=== PATIENT | female | born 1955 | race Caucasian/White ===

== ENCOUNTER 2016-11-17 13:44 | Emergency (ER) | payer MEDICAID, OTHER ==
[~2016-11-17] VITALS: Ht 160 cm; Wt 71.7 kg
[~2016-11-17 13:44] MED LIST: AUGMENTIN 875-1 EAC1 ORAL; NKM; POLYTRIM OP SOL10 ML OPHTHALM
[2016-11-17 14:06] VITALS: BP 134/84
[2016-11-17] MEDS ORDERED: Bicillin LA 2,400,000 units IM ONE (14:15)
--- NOTE | 2016-11-17 14:17 | Emergency Room Report ---
History of Present Illness General Chief Complaint: General Complaint Source: Patient Present Illness HPI The patient is a 61-year-old female presenting with tooth pain which began 2 days prior. The patient states that she has had dental infections in the past and this feels similar. Pain is described as an 8/10 dull/throbbing ache to the right upper jaw. Pain worse with chewing. The patient denies any radiation of pain. Patient does admit R facial swelling which she noticed today. The patient also admits to subjective fever this morning. The patient has an appointment to see dentist in 3 days. The patient denies other symptoms including headache, dizziness, blurred vision , ear pain, sore throat, cough, chest pain, shortness of breath Allergies: Coded Allergies: CEPHALEXIN (Verified Allergy, Unknown, 04/18/16) SHELLFISH DERIVED (Unverified Allergy, Unknown, 11/17/16) Uncoded Allergies: SHELLFISH (Allergy, Unknown, 11/17/16) Patient History Past Medical History: see triage record Pertinent Family History: none Reviewed Nursing Documentation: PMH: Agreed, PSxH: Agreed Nursing Documentation-PMH Past Medical History: No History, Except For Review of Systems All Other Systems: negative except mentioned in HPI Physical Exam Vital Signs Date Time Temp Pulse Resp B/P Pulse Ox O2 Delivery O2 Flow Rate FiO2 11/17/16 13:51 98.1 71 16 134/84 97 Room Air Sp02 EP Interpretation: reviewed, normal General Appearance: no apparent distress, alert, GCS 15, non-toxic Head: normocephalic, atraumatic Eyes: bilateral eye PERRL, bilateral eye normal inspection ENT: hearing grossly normal, no angioedema, normal voice, TMs + canals normal, uvula midline, moist mucus membranes, other - There are many dental caries. R upper mollar has surrounding erythema and edema. TTP. Neck: full range of motion, supple/symm/no masses Respiratory: chest non-tender, lungs clear, normal breath sounds, no wheezing, speaking full sentences Cardiovascular #1: regular rate, rhythm, no edema Gastrointestinal: normal bowel sounds, non tender, soft, non-distended, no guarding, no rebound Musculoskeletal: back normal, gait/station normal, normal range of motion, non- tender Neurologic: alert, oriented x3, responsive, motor strength/tone normal, sensory intact, speech normal Psychiatric: judgement/insight normal, memory normal, mood/affect normal, no suicidal/homicidal ideation Skin: normal color, no rash, warm/dry, well hydrated Lymphatic: no adenopathy Medical Decision Making PA Attestation Dr. Escudero is my supervising physician. Patient management was discussed with my supervising physician Diagnostic Impression: Primary Impression: Dental infection ER Course The patient is a 61-year-old female presenting with tooth pain Diagnoses considered but not limited to: Dental elvis, dental abscess, toothache , gingivitis PE: vitals WNL. NAD HEENT: There are many dental caries. R upper molar has surrounding erythema and edema. TTP. There is edema to the right face adjacent to upper teeth. The patient is given a shot of penicillin and will be discharged home with a prescription for Augmentin and pain medication. The patient states that she has an appointment with the dentist on the following Sunday. ER precautions are given Last Vital Signs Date Time Temp Pulse Resp B/P Pulse Ox O2 Delivery O2 Flow Rate FiO2 11/17/16 14:06 98.1 76 16 134/84 97 Room Air Status: improved Disposition: HOME, SELF-CARE Condition: Improved Scripts Tramadol Hcl* (ULTRAM*) 50 Mg Tablet 50 MG ORAL Q6H Y for For Pain, #15 TAB 0 Refills Prov: NAVNEET SHARMA 11/17/16 Amoxicillin/Potassium Clav 500-125 Tablet* (AUGMENTIN 500-125 TABLET*) 1 Each Tablet 1 TAB ORAL THREE TIMES A DAY, #21 TAB Prov: NAVNEET SHARMA 11/17/16 NAVNEET SHARMA Nov 17, 2016 14:17
[2016-11-17] MEDS ORDERED: AUGMENTIN 500-1 EACH ORAL (14:28)
[2016-11-17] MEDS ORDERED: TRAMADOL HCL50 MG ORAL (14:28)
[2016-11-17 15:02] VITALS: BP 134/84
[2016-12-01] MEDS ORDERED: CLARITHROMYCIN500 MG PO (15:01)
[2016-12-01] MEDS ORDERED: FLUTICASONE PRO16 G1 NASAL (15:01)
== END 2016-11-17 15:04 | disposition home or self-care (01) ==
LOC: EMR 14:10
DX: K04.7 Periapical abscess without sinus (principal); Z91.013 Allergy to seafood
CPT/HCPCS: 96372; 99283

== ENCOUNTER 2016-11-29 16:20 | Emergency (ER) | payer OTHER ==
[~2016-11-29] VITALS: Ht 160 cm; Wt 70.3 kg
[~2016-11-29 16:20] MED LIST changes: +AUGMENTIN 500-1 EACH ORAL; +TRAMADOL HCL50 MG ORAL
[2016-11-29 16:46] VITALS: BP 125/68
[2016-11-29] MEDS ORDERED: Norco 5mg/325mg tab ORAL ONE (17:45)
[2016-11-29] MEDS ORDERED: AUGMENTIN 500-1 EACH ORAL (19:23)
[2016-11-29] MEDS ORDERED: PREDNISONE20 MG ORAL (19:23)
[2016-11-29 19:27] VITALS: BP 119/63
--- NOTE | 2016-11-29 22:30 | Emergency Room Report ---
History of Present Illness General Chief Complaint: Skin Rash/Abscess Source: Patient (NAVNEET SHARMA) Present Illness HPI The patient is a 61-year-old female presenting for left facial pain. The patient was seen in this emergency department 2 weeks prior for dental abscess. Patient was treated with a shot of penicillin and a prescription for Augmentin. The patient states that she did followup with dentist who told her to return when antibiotics are finished. The patient did finish antibiotics but did not followup with dentist. Patient states that the right-sided facial pain and abscess have resolved but is now experiencing left-sided facial pain. This pain is described as a 7/10 dull ache of the left lower face. Pain worse with touch and chewing. (NAVNEET SHARMA) Allergies: Coded Allergies: CEPHALEXIN (Verified Allergy, Unknown, 04/18/16) SHELLFISH DERIVED (Unverified Allergy, Unknown, 11/17/16) Uncoded Allergies: SHELLFISH (Allergy, Unknown, 11/17/16) Patient History Past Medical History: see triage record Pertinent Family History: none Now: No Reviewed Nursing Documentation: PMH: Agreed, PSxH: Agreed (NAVNEET SHARMA) Nursing Documentation-PMH Past Medical History: No History, Except For (NAVNEET SHARMA) Review of Systems All Other Systems: negative except mentioned in HPI (NAVNEET SHARMA) Physical Exam Vital Signs Date Time Temp Pulse Resp B/P Pulse Ox O2 Delivery O2 Flow Rate FiO2 11/29/16 16:37 98.1 80 16 125/68 100 Room Air (NAVNEET SHARMAAAllison) Medical Decision Making PA Attestation Dr. Tobar is my supervising physician. Patient management was discussed with my supervising physician (NAVNEET SHARMA) Diagnostic Impression: Primary Impression: Lopez's palsy Additional Impression: Sinusitis ER Course The pt spoke with Dr. Tracy on 11/30 and 12/01. The antibiotic will be changed to clindamycin and the patient will be placed on flonase. Patient advised to return for repeat of CT of face and blood work but has chosen to wait until 12/06/2016 to return if she feels fit. ER precautions given and pt understands the seriousness of this. (NAVNEET SHARMA) ER Course Patient called today stating that she is not feeling better. Patient was seen 2 days ago and discharged on antibiotics for presumed sinusitis and steroids for Lopez's palsy. Patient states she is having persistent pain on the left side of face. I discussed case with ENT; since patient was already on Augmentin may want to consider a different antibiotic. Also consider adding intranasal steroids. If symptoms do not improve patient can come back for further evaluation including repeat CT and labs. Discussed options with the patient; at this time patient would like to try to antibiotics and intranasal steroids. Will consider returning to ED next week If symptoms do not improve. I called in prescription for clindamycin and Flonase (FOREST TRACY M.D.) Last Vital Signs Date Time Temp Pulse Resp B/P Pulse Ox O2 Delivery O2 Flow Rate FiO2 11/29/16 19:27 98.1 16 119/63 100 Room Air 11/29/16 16:37 80 Status: improved (NAVNEET SHARMA) Disposition: HOME, SELF-CARE Condition: Improved Scripts Clarithromycin* (CLARITHROMYCIN*) 500 Mg Tablet 500 MG PO Q12HR for 14 Days, TAB Prov: FOREST TRACY M.D. 12/01/16 Fluticasone Propionate* (FLUTICASONE PROPIONATE*) 16 Gm Ware.susp 1 SPRAY NASAL TWICE A DAY, #16 GM Prov: FOREST TRACY M.D. 12/01/16 Prednisone* (PREDNISONE*) 20 Mg Tablet 40 MG ORAL DAILY for 5 Days, TAB Prov: GERALDINEANNAVNEET P.A. 11/29/16 Prednisone* (PREDNISONE*) 20 Mg Tablet 60 MG ORAL DAILY for 5 Days, TAB Prov: TERGREGORIOANNAVNEET P.A. 11/29/16 Amoxicillin/Potassium Clav 500-125 Tablet* (AUGMENTIN 500-125 TABLET*) 1 Each Tablet 1 TAB ORAL THREE TIMES A DAY, #21 TAB Prov: DANIEL SHARMAY P.A. 11/29/16 Patient Instructions: Dental Pain, Olpez Palsy Additional Instructions: I discussed my findings with the patient. All questions and concerns have been answered. Treatment and medication compliance have been addressed. I advised the patient that they need to follow up with PMD in 3-5 days. Return to ED if symptoms worsen, new symptoms arise, or if needed for any reason. Patient verbalized understanding of discharge instructions. The patient is advised that she needs to followup with both dentist and primary doctor soon as possible NAVNEET SHAMRA Nov 29, 2016 22:30 FOREST TRACY M.D. Dec 01, 2016 16:02
--- NOTE | 2016-11-30 08:56 | Diagnostic Imaging Report ---
Indications: PAIN no history of trauma Technique: Spiral images obtained through the facial bones. No IV contrast utilized. Multiplanar reconstructions were generated.Total dose length product 564 mGycm. CTDIvol(s) 28mGy Comparison: None Findings: There is a fracture deformity of the anterior inferior bony nasal septum. The nasal bone itself appears intact. No other evidence of fracture. Large dental caries are seen involving the right maxillary first and second molars. No underlying apical root abscess demonstrated.. There is opacification of left sphenoid sinus. No significant subcutaneous soft tissue abnormality is demonstrated. The retropharyngeal soft tissues are unremarkable. The visualized cranial structures are unremarkable. The orbits are unremarkable. Impression: Dental disease, as described Sphenoid sinus disease Fracture deformity of the anterior inferior bony nasal septum there is presumably old in the absence of history of acute bony trauma This agrees with the preliminary interpretation provided overnight by Dr. Arora The CT scanner at [facility] is accredited by the [employer] and the scans are performed using protocols designed to limit radiation exposure to as low as reasonably achievable to attain images of sufficient resolution adequate for diagnostic evaluation.
--- NOTE | 2016-11-30 08:58 | Diagnostic Imaging Report ---
Indication: PAIN, Lopez's palsy Technique: Continuous helical CT scanning of the head was performed without intravenous contrast material. Axial and coronal 5 mm sections were generated. Radiation dose was minimized using automated exposure control Dose: Total Dose Length Product - DLP [address] Dose Index - CTDIvol(s) 70.38 mGy. Comparison: None Findings: The ventricular system is normal in size and configuration. There is no shift of midline structures. No abnormal extra-axial fluid collections are noted. There is no evidence of intracerebral bleeding. No other abnormal high or low density areas are noted within the brain. There is opacification of left sphenoid sinus. The included orbits are unremarkable. Impression: Normal CT scan of the head without contrast material. Incidental finding of sinus disease This agrees with the preliminary interpretation provided overnight by Dr. Arora The CT scanner at [facility] is accredited by the [employer] and the scans are performed using protocols designed to limit radiation exposure to as low as reasonably achievable to attain images of sufficient resolution adequate for diagnostic evaluation.
[2016-12-01] MEDS ORDERED: CLARITHROMYCIN500 MG PO (15:01)
[2016-12-01] MEDS ORDERED: FLUTICASONE PRO16 G1 NASAL (15:01)
== END 2016-11-29 19:28 | disposition home or self-care (01) ==
LOC: EMR 16:55
DX: K04.7 Periapical abscess without sinus (principal); G51.0 Bell's palsy; Z91.013 Allergy to seafood; Z88.1 Allergy status to other antibiotic agents
CPT/HCPCS: 70450; 70486; 99284

== ENCOUNTER 2016-12-04 13:58 | Emergency (ER) | payer OTHER ==
[~2016-12-04] VITALS: Ht 160 cm; Wt 70.3 kg
[~2016-12-04 13:58] MED LIST changes: +CLARITHROMYCIN500 MG PO; +FLUTICASONE PRO16 G1 NASAL; +PREDNISONE20 MG ORAL
[2016-12-04 15:22] LABS: BASOPHILS % (AUTO) 0.9 % (0.0-2.0); MEAN CORPUSCULAR HEMOGLOBIN 33.2 PG (27.0-31.0); MEAN CORPUSCULAR HGB CONC 34.1 G/DL (32.0-36.0); MEAN CORPUSCULAR VOLUME 97 FL (80-99); MEAN PLATELET VOLUME 8.3 FL (6.5-10.1); MONOCYTES % (AUTO) 7.5 % (1.0-10.0); NEUTROPHILS % (AUTO) 54.7 % (45.0-75.0); PLATELET COUNT 145 K/UL (150-450); RED BLOOD COUNT 4.07 M/UL (4.20-5.40); RED CELL DISTRIBUTION WIDTH 12.6 % (11.6-14.8); WHITE BLOOD COUNT 9.6 K/UL (4.8-10.8)
[2016-12-04 15:40] LABS: ANION GAP 15 (5-15); CALCIUM 9.2 mg/dL (8.6-10.2); CARBON DIOXIDE 24 mEQ/L (20-30); CHLORIDE 102 mEQ/L (98-107); CREATININE 0.6 mg/dL (0.5-0.9); GLOMERULAR FILTRATION RATE > 60 mL/min (>60); HEMOLYSIS 9; POTASSIUM 3.4 mEQ/L (3.4-4.9); SODIUM 141 mEQ/L (135-145)
[2016-12-04 15:58] VITALS: BP 146/88
--- NOTE | 2016-12-06 03:50 | Emergency Room Report ---
History of Present Illness General Chief Complaint: General Complaint Source: Patient Present Illness HPI Patient presents after being contacted for reevaluation Patient had been here previously with sinus infection, Lopez's palsy Patient presents now with improved Lopez's palsy Denies any headache Patient reports that she was seen at [facility], and has neurology followup Patient has had very pertinent past medical history with septicemia, previous strokes Patient is also aware of her dental caries and is seeing a specialist Given her abnormal CT and Lopez's palsy patient was requested to return for reevaluation Allergies: Coded Allergies: CEPHALEXIN (Verified Allergy, Unknown, 04/18/16) SHELLFISH DERIVED (Unverified Allergy, Unknown, 11/17/16) Uncoded Allergies: SHELLFISH (Allergy, Unknown, 11/17/16) Patient History Past Medical History: see triage record Pertinent Family History: none Reviewed Nursing Documentation: PMH: Agreed, PSxH: Agreed Nursing Documentation-PMH Past Medical History: No History, Except For Review of Systems All Other Systems: negative except mentioned in HPI Physical Exam Vital Signs Date Time Temp Pulse Resp B/P Pulse Ox O2 Delivery O2 Flow Rate FiO2 12/04/16 14:12 97.2 75 14 143/75 100 Room Air Sp02 EP Interpretation: reviewed, normal General Appearance: well appearing, no apparent distress Head: normocephalic, atraumatic Eyes: left eye other - Lopez's palsy left side, bilateral eye EOMI, bilateral eye PERRL ENT: hearing grossly normal, normal pharynx, TMs + canals normal, uvula midline , other - Dental decay Neck: full range of motion, supple, no meningismus, no bony tend Respiratory: lungs clear, normal breath sounds, no rhonchi, no respiratory distress, no retraction, no accessory muscle use Cardiovascular #1: normal peripheral pulses, regular rate, rhythm, no edema, no gallop, no JVD, no murmur Gastrointestinal: normal bowel sounds, non tender, soft, no mass, no organomegaly, non-distended, no guarding, no hernia, no pulsatile mass, no rebound Genitourinary: no CVA tenderness Musculoskeletal: other - Lopez's palsy on the left side Neurologic: oriented x3, responsive, sensory intact, other - Lopez's palsy Psychiatric: mood/affect normal Skin: normal color, no rash, warm/dry, palpation normal Lymphatic: normal inspection, no adenopathy Medical Decision Making Diagnostic Impression: Primary Impression: Lopez's palsy Additional Impression: Dental infection ER Course Patient's CT scan had revealed previously dental disease also evidence of sphenoid sinus opacification At this time given the patient's neurological exam she is awake alert She feels improved from previous Patient has neurology followup Patient has had also as noted previously fairly significant past medical history , and this also does involve shingles, however the patient has no conjunctival erythema I do not feel that CAT scan imaging would provide much further input, patient also agrees with this Patient did have blood work obtained for further evaluation of bacteremia which was negative Patient was provided a copy of her images and will have close outpatient follow Labs Test 12/04/16 14:55 White Blood Count 9.6 K/UL (4.8-10.8) Red Blood Count 4.07 M/UL (4.20-5.40) Hemoglobin 13.5 G/DL (12.0-16.0) Hematocrit 39.5 % (37.0-47.0) Mean Corpuscular Volume 97 FL (80-99) Mean Corpuscular Hemoglobin 33.2 PG (27.0-31.0) Mean Corpuscular Hemoglobin Concent 34.1 G/DL (32.0-36.0) Red Cell Distribution Width 12.6 % (11.6-14.8) Platelet Count 145 K/UL (150-450) Mean Platelet Volume 8.3 FL (6.5-10.1) Neutrophils (%) (Auto) 54.7 % (45.0-75.0) Lymphocytes (%) (Auto) 36.0 % (20.0-45.0) Monocytes (%) (Auto) 7.5 % (1.0-10.0) Eosinophils (%) (Auto) 1.0 % (0.0-3.0) Basophils (%) (Auto) 0.9 % (0.0-2.0) Sodium Level 141 mEQ/L (135-145) Potassium Level 3.4 mEQ/L (3.4-4.9) Chloride Level 102 mEQ/L (98-107) Carbon Dioxide Level 24 mEQ/L (20-30) Anion Gap 15 (5-15) Blood Urea Nitrogen 10 mg/dL (7-23) Creatinine 0.6 mg/dL (0.5-0.9) Estimat Glomerular Filtration Rate > 60 mL/min (>60) Glucose Level 89 mg/dL (74-106) Calcium Level 9.2 mg/dL (8.6-10.2) Last Vital Signs Date Time Temp Pulse Resp B/P Pulse Ox O2 Delivery O2 Flow Rate FiO2 12/04/16 15:58 78 16 146/88 94 Room Air 12/04/16 15:58 97.7 Status: improved Disposition: HOME, SELF-CARE Condition: Improved Referrals: [facility]REFERR[facility],REFERRING (PCP) Patient Instructions: Lopez Palsy, Dental Caries, [id number] Additional Instructions: Patient is provided with the discharge instructions notified to follow up with primary doctor in the next 2-3 days otherwise return to the er with any worsening symptoms. Please note that this report is being documented using [employer] technology. This can lead to erroneous entry secondary to incorrect interpretation by the dictating instrument. LISSET DOSHI D.O. Dec 06, 2016 03:50
== END 2016-12-04 16:06 | disposition home or self-care (01) ==
LOC: EMR 15:55
DX: G51.0 Bell's palsy (principal); K04.7 Periapical abscess without sinus; Z88.1 Allergy status to other antibiotic agents; Z91.013 Allergy to seafood; Z86.73 Personal history of transient ischemic attack (TIA), and cerebral infarction without residual deficits
CPT/HCPCS: 36415; 80048; 85025; 99284

== ENCOUNTER 2016-12-08 12:11 | Emergency (ER) | payer MEDICAID, OTHER ==
[~2016-12-08] VITALS: Ht 162.6 cm; Wt 70.8 kg
[2016-12-08 12:26] VITALS: BP 147/87
[2016-12-08] MEDS ORDERED: Norco 7.5mg/325mg tab ORAL ONE (12:45)
[2016-12-08] MEDS ORDERED: Bicillin LA 2,400,000 units IM ONE (12:45)
[2016-12-08] MEDS ORDERED: NORCO 5-325 TA1 EAC1 ORAL (13:19)
[2016-12-08 13:24] VITALS: BP 136/79
--- NOTE | 2016-12-10 20:15 | Emergency Room Report ---
History of Present Illness General Chief Complaint: Skin Rash/Abscess Source: Patient Present Illness HPI The pt is a 61 yo F presenting for continuing facial pain. The was seen in this ED two weeks prior and initially diagnosed with a R sided dental infection. The pt was treated with augmentin and told to FU with her dentist. The pt states this infection completely resolved but was unable to make an appointment with her dentist. The pt then returned to this ER for L sided dental pain. The pt was diagnosed with L sphenoid sinusitis and Lopez's palsy. The pt was again treated with antibiotics and steroids. The pt is now presenting for continuing L sided facial pain. This pain is described as a 10/10 dull ache and is localized to the L lower teeth. Pain is worse with chewing. Pain radiates to the L cheek. The pt states motrin and tylenol do not help. The pt denies other symptoms including N, V, F, chills, cough, neck pain, neck stiffness, SY, dizziness, blurred vision, SOB, CP Allergies: Coded Allergies: CEPHALEXIN (Verified Allergy, Unknown, 04/18/16) SHELLFISH DERIVED (Unverified Allergy, Unknown, 11/17/16) Uncoded Allergies: SHELLFISH (Allergy, Unknown, 11/17/16) Patient History Past Medical History: see triage record Pertinent Family History: none Reviewed Nursing Documentation: PMH: Agreed, PSxH: Agreed Nursing Documentation-PMH Past Medical History: No History, Except For Review of Systems All Other Systems: negative except mentioned in HPI Physical Exam Vital Signs Date Time Temp Pulse Resp B/P Pulse Ox O2 Delivery O2 Flow Rate FiO2 12/08/16 12:16 97.5 90 16 147/87 95 Room Air Sp02 EP Interpretation: reviewed, normal General Appearance: no apparent distress, alert, GCS 15, non-toxic Head: normocephalic, atraumatic Eyes: bilateral eye EOMI, bilateral eye PERRL ENT: hearing grossly normal, normal pharynx, no angioedema, normal voice Neck: full range of motion, supple/symm/no masses Respiratory: chest non-tender, lungs clear, normal breath sounds, speaking full sentences Cardiovascular #1: regular rate, rhythm, no edema Musculoskeletal: back normal, gait/station normal, normal range of motion, non- tender Neurologic: alert, oriented x3, responsive, sensory intact, normal gait, motor weakness - weakness of L facial nerve Psychiatric: judgement/insight normal, memory normal, mood/affect normal, no suicidal/homicidal ideation Skin: normal color, no rash, warm/dry, well hydrated Lymphatic: no adenopathy Medical Decision Making PA Attestation Dr. Tobar is my supervising physician. Patient management was discussed with my supervising physician Diagnostic Impression: Primary Impression: Lopez's palsy Additional Impression: Dental infection ER Course The pt is a 61 yo F presenting for continuing facial pain. DDx: dental infection/abscess, Lopez palsy, sinusitis, shingles PE: vitals WNL. NAD HEENT: PERRL. Poor dentition. There is TTP over the L lower premolar with surrounding erythema. Neuro: normal gait. There is weakness of the L facial nerve. Pt unable to furrow L brow. L eyelid does not completely close. Uneven smile. The pt is given PCN G IM and pain medication The pt is advised she needs to see dentist DESMOND for evaluation and also ENT. ER precautions given . Last Vital Signs Date Time Temp Pulse Resp B/P Pulse Ox O2 Delivery O2 Flow Rate FiO2 12/08/16 13:24 97.5 81 16 136/79 95 Room Air Status: improved Disposition: HOME, SELF-CARE Condition: Improved Scripts Hydrocodone Bit/Acetaminophen 5-325* (NORCO 5-325 TABLET*) 1 Each Tablet 1 TAB ORAL Q6HR Y for For Pain, #10 TAB Prov: NAVNEET SHARMA 12/08/16 Referrals: NOT CHOSEN IPA/MD,REFERRING Patient Instructions: Dental Pain, Lopez Palsy Additional Instructions: I discussed my findings with the patient. All questions and concerns have been answered. Treatment and medication compliance have been addressed. I advised the patient that they need to follow up with PMD in 3-5 days. Return to ED if symptoms worsen, new symptoms arise, or if needed for any reason. Patient verbalized understanding of discharge instructions. Patient advised she needs to see neurology and dentist as soon as possible NAVNEET SHARMA Dec 10, 2016 20:15
== END 2016-12-08 13:33 | disposition home or self-care (01) ==
LOC: EMR 13:14
DX: G51.0 Bell's palsy (principal); K04.7 Periapical abscess without sinus; Z88.1 Allergy status to other antibiotic agents; Z91.013 Allergy to seafood
CPT/HCPCS: 82962; 96372; 99283

== ENCOUNTER 2017-03-07 14:14 | Emergency (ER) | payer MEDICAID, OTHER ==
[~2017-03-07] VITALS: Ht 160 cm; Wt 71.7 kg
[~2017-03-07 14:14] MED LIST changes: +NORCO 5-325 TA1 EAC1 ORAL
[2017-03-07] MEDS ORDERED: Norco 5mg/325mg tab ORAL ONE (14:45)
[2017-03-07] MEDS ORDERED: Bicillin LA 1.2 Million Units Syr IM ONE (14:45)
[2017-03-07 14:55] VITALS: BP 111/71
[2017-03-07] MEDS ORDERED: ACETAMINOPHEN-1 EAC1 ORAL (15:11)
[2017-03-07 15:19] VITALS: BP 111/71
--- NOTE | 2017-03-07 19:28 | Emergency Room Report ---
History of Present Illness General Chief Complaint: Edema Source: Patient Present Illness HPI The patient is a 61-year-old female presenting with left-sided facial pain and swelling. She was seen in this emergency department for the same complaint, diagnosed with dental infection, given antibiotics and symptoms resolved. She was told to follow up with dentist. The patient states that she saw a dentist who told her that all teeth need to be removed. She states that she is now waiting for insurance. The patient states that she experienced pain and swelling to the left side of her face 2 days prior. Pain worse with chewing and touch. Described as an 8/10 dull ache and does not radiate. She denies any other symptoms including N, V, F, chills, SOB, rash, SY, dizziness, blurred vision Allergies: Coded Allergies: CEPHALEXIN (Verified Allergy, Unknown, 04/18/16) SHELLFISH DERIVED (Unverified Allergy, Unknown, 11/17/16) Uncoded Allergies: SHELLFISH (Allergy, Unknown, 11/17/16) Patient History Past Medical History: see triage record Pertinent Family History: none Now: No Reviewed Nursing Documentation: PMH: Agreed, PSxH: Agreed Review of Systems All Other Systems: negative except mentioned in HPI Physical Exam Vital Signs Date Time Temp Pulse Resp B/P Pulse Ox O2 Delivery O2 Flow Rate FiO2 03/07/17 14:17 97.5 80 17 112/71 96 Room Air Sp02 EP Interpretation: reviewed, normal General Appearance: no apparent distress, alert, GCS 15, non-toxic Head: normocephalic, atraumatic, other - L lower facial edema. TTP over the L upper jaw. No fluctuance. Eyes: bilateral eye EOMI, bilateral eye PERRL, bilateral eye normal inspection ENT: hearing grossly normal, normal pharynx, no angioedema, normal voice, uvula midline Neck: full range of motion, supple/symm/no masses Respiratory: chest non-tender, lungs clear, normal breath sounds, speaking full sentences Cardiovascular #1: regular rate, rhythm, no edema Neurologic: alert, oriented x3, responsive, motor strength/tone normal, sensory intact, speech normal Psychiatric: judgement/insight normal, memory normal, mood/affect normal, no suicidal/homicidal ideation Skin: normal color, no rash, warm/dry, well hydrated Lymphatic: no adenopathy Medical Decision Making PA Attestation Dr. Lockhart is my supervising physician. Patient management was discussed with my supervising physician Diagnostic Impression: Primary Impression: Dental infection ER Course The patient is a 61-year-old female presenting with left-sided facial pain and swelling Differential diagnoses considered but not limited to: Dental infection, dental abscess, Lopez's palsy, allergic reaction, CVA, among others Physical exam: Vitals within normal limits. No apparent distress HEENT: There is left-sided facial swelling primarily over the maxilla. There is diffuse poor dentition. There tenderness to palpation over the left upper premolar. No fluctuance. No discharge or bleeding. No lymphadenopathy CN II-XII grossly intact. Otherwise exam unremarkable Pt is given PCN G and pain medication and will be DC'ed. She needs to FU with dentist DESMOND. ER precautions given Last Vital Signs Date Time Temp Pulse Resp B/P Pulse Ox O2 Delivery O2 Flow Rate FiO2 03/07/17 15:19 97.5 78 17 111/71 97 Room Air Status: improved Disposition: HOME, SELF-CARE Condition: Improved Scripts Acetaminophen With Codeine (T#3) (TYLENOL #3 TAB*) Y Tab 1 TAB ORAL Q6HR Y for For Pain, #8 TAB Prov: NAVNEET SHARMA 03/07/17 Referrals: [facility] (PCP) Patient Instructions: Dental Pain Additional Instructions: I discussed my findings with the patient. All questions and concerns have been answered. Treatment and medication compliance have been addressed. I advised the patient that they need to follow up with PMD in 3-5 days. Return to ED if symptoms worsen, new symptoms arise, or if needed for any reason. Patient verbalized understanding of discharge instructions. The patient will follow up with dentist as soon as possible for further care NAVNEET SHARMA March 07, 2017 19:28
== END 2017-03-07 15:21 | disposition home or self-care (01) ==
LOC: EMR 14:29
DX: K08.89 Other specified disorders of teeth and supporting structures (principal); R51 Headache; Z88.1 Allergy status to other antibiotic agents; Z91.013 Allergy to seafood
CPT/HCPCS: 96372; 99283; J0570; J0561

== ENCOUNTER 2017-05-28 14:53 | Emergency (ER) | payer MEDICAID, OTHER ==
[~2017-05-28] VITALS: Ht 162.6 cm; Wt 71.7 kg
[~2017-05-28 14:53] MED LIST changes: +ACETAMINOPHEN-1 EAC1 ORAL
[2017-05-28 15:00] VITALS: BP 112/72
--- NOTE | 2017-05-28 15:26 | Emergency Room Report ---
History of Present Illness General Chief Complaint: Toothache Source: Patient Present Illness HPI 63-year-old female presents to the emergency department complaining of swelling and tenderness to the right lower jaw since yesterday. Patient states that she was recently seen by Dentist who recommended "root and gum scaling " for recurrent gingival infections. pt. denies fevers or chills. pt. reports last dental infection was approximately 1 month ago. pt. states at home she has been doing warm compresses with salt water gargles which provided some relief to her facial/jaw swelling. pt. reports continued tenderness, and 6/10 in severity dull ache to the right lower jaw. denies other associated symptoms. Denies CP, Palpitations, LOC, AMS, dizziness, Changes in Vision, Sensation, paresthesias, or a sudden severe headache. Allergies: Coded Allergies: CEPHALEXIN (Verified Allergy, Unknown, 04/18/16) SHELLFISH DERIVED (Unverified Allergy, Unknown, 11/17/16) Uncoded Allergies: SHELLFISH (Allergy, Unknown, 11/17/16) Patient History Past Medical History: see triage record Past Surgical History: none Pertinent Family History: none Last Menstrual Period: na Immunizations: UTD Reviewed Nursing Documentation: PMH: Agreed, PSxH: Agreed Nursing Documentation-PMH Past Medical History: No History, Except For Review of Systems All Other Systems: negative except mentioned in HPI Physical Exam Vital Signs Date Time Temp Pulse Resp B/P Pulse Ox O2 Delivery O2 Flow Rate FiO2 05/28/17 15:00 97.5 69 18 112/72 98 Room Air Sp02 EP Interpretation: reviewed, normal General Appearance: no apparent distress, alert, GCS 15, non-toxic Head: normocephalic, atraumatic Eyes: bilateral eye normal inspection, bilateral eye PERRL ENT: hearing grossly normal, normal pharynx, no angioedema, normal voice, TMs + canals normal, uvula midline, moist mucus membranes, other - swelling to the right lower jaw, no palpable masses or fluctuance, there is tenderness to percussion to tooth number 30. with obvious dental carries. no fluctuance in the gumline. Neck: full range of motion, supple/symm/no masses Respiratory: lungs clear, normal breath sounds, speaking full sentences Cardiovascular #1: regular rate, rhythm Musculoskeletal: back normal, gait/station normal Neurologic: alert, oriented x3, responsive, motor strength/tone normal, sensory intact, speech normal Psychiatric: judgement/insight normal, memory normal, mood/affect normal Skin: normal color, no rash, warm/dry, well hydrated Lymphatic: no adenopathy Medical Decision Making PA Attestation Dr. Bernard is my supervising Physician whom patient management has been discussed with. Diagnostic Impression: Primary Impression: Dental infection ER Course 63-year-old female presents to the emergency department complaining of swelling and tenderness to the right lower jaw since yesterday. Patient states that she was recently seen by Dentist who recommended "root and gum scaling " for recurrent gingival infections. pt. denies fevers or chills. pt. reports last dental infection was approximately 1 month ago. pt. states at home she has been doing warm compresses with salt water gargles which provided some relief to her facial/jaw swelling. pt. reports continued tenderness, and 6/10 in severity dull ache to the right lower jaw. denies other associated symptoms. Denies CP, Palpitations, LOC, AMS, dizziness, Changes in Vision, Sensation, paresthesias, or a sudden severe headache. Ddx considered but are not limited to cellulitis, dental abscess, orbital cellulitis, d/l tooth, dental pain. trigeminal neuralgia Vital signs: are WNL, pt. is afebrile H&PE are most consistent with tooth infection of tooth number 30. no palpable fluctuance to warrant I & D at this time. ORDERS: none required at this time, the diagnosis is clinical ED INTERVENTIONS: None required at this time. -pt. given resource with several dental clinics' information for follow up/ second opinion. DISCHARGE: At this time pt. is stable for d/c to home. Will provide printed patient care instructions, and any necessary prescriptions. Care plan and follow up instructions have been discussed with the patient prior to discharge. Last Vital Signs Date Time Temp Pulse Resp B/P Pulse Ox O2 Delivery O2 Flow Rate FiO2 05/28/17 15:00 97.5 69 18 112/72 98 Room Air Disposition: HOME, SELF-CARE Condition: Stable Scripts Ibuprofen* (MOTRIN*) 600 Mg Tablet 600 MG ORAL THREE TIMES A DAY, #20 TAB 0 Refills Prov: Callie Rios 05/28/17 Chlorhexidine Gluconate (CHLORHEXIDINE GLUCONATE) 473 Ml Mouthwash 10 ML MM BID, #437 ML 2 Refills Prov: Callie Rios 05/28/17 Amoxicillin/Potassium Clav 875-125* (AUGMENTIN 875-125 TABLET*) 1 Each Tablet 1 TAB ORAL TWICE A DAY for 7 Days, #14 TAB Prov: Callie Rios 05/28/17 Referrals: [facility] (PCP) Patient Instructions: Dental Abscess, [id number] Additional Instructions: Take medications as directed. Follow up with a Primary Care Provider in 3-5 days, even if your symptoms have resolved. recommend Dental Follow up. --Please review list of dental clinics if needed. Return sooner to ED if new symptoms occur, or current symptoms become worse. - Please note that this Emergency Department Report was dictated using [employer]aging[employer]is[employer] manager technology software, occasionally this can lead to erroneous entry secondary to interpretation by the dictation equipment. Callie Rios May 28, 2017 15:25
[2017-05-28] MEDS ORDERED: IBUPROFEN600 MG ORAL (15:29)
[2017-05-28] MEDS ORDERED: CHLORHEXIDINE473 ML MM (15:29)
[2017-05-28] MEDS ORDERED: AUGMENTIN 875-1 EAC1 ORAL (15:29)
[2017-05-28 15:30] VITALS: BP 112/72
== END 2017-05-28 15:30 | disposition home or self-care (01) ==
LOC: EMR 15:14
DX: K04.7 Periapical abscess without sinus (principal); Z91.013 Allergy to seafood; Z88.1 Allergy status to other antibiotic agents
CPT/HCPCS: 99284

== ENCOUNTER 2017-11-09 18:19 | Emergency (ER) | payer MEDICAID ==
[~2017-11-09] VITALS: Ht 160 cm; Wt 71.7 kg
[~2017-11-09 18:19] MED LIST changes: +CHLORHEXIDINE473 ML MM; +IBUPROFEN600 MG ORAL
[2017-11-09] MEDS ORDERED: IBUPROFEN600 MG ORAL (18:49)
[2017-11-09] MEDS ORDERED: HIBICLENS118 ML TP (18:49)
[2017-11-09] MEDS ORDERED: AMOX TR-K CLV1 EAC2 ORAL (18:49)
--- NOTE | 2017-11-09 18:52 | Emergency Room Report ---
History of Present Illness General Chief Complaint: Skin Rash/Abscess Source: Patient Present Illness HPI 62 yo female presents to ER complaining of dental abscess. Patient complains of pain on the right side of gum and face. Patient reports fever at home; states fever was 101; patient reports taking OTC medication and chlorhexidine mouth wash which "broke the fever". Patient denies vision changes, earing changes. Patient denies nausea, vomiting, SOB, chest pain, rash, difficulty eating, sore throat. Patient states she has a followup appointment with dentist on November 21; patient states dentist is at [facility]. Patient reports hx of dental abscess treated previously with antibiotics from this ER. Allergies: Coded Allergies: CEPHALEXIN (Verified Allergy, Unknown, 04/18/16) SHELLFISH DERIVED (Unverified Allergy, Unknown, 11/17/16) Uncoded Allergies: SHELLFISH (Allergy, Unknown, 11/17/16) Patient History Past Medical History: see triage record Reviewed Nursing Documentation: PMH: Agreed, PSxH: Agreed Nursing Documentation-PMH Past Medical History: No History, Except For Review of Systems All Other Systems: negative except mentioned in HPI Physical Exam Vital Signs Date Time Temp Pulse Resp B/P (MAP) Pulse Ox O2 Delivery O2 Flow Rate FiO2 11/09/17 18:23 97.7 76 20 155/65 96 Room Air Sp02 EP Interpretation: reviewed, normal General Appearance: no apparent distress, alert, GCS 15, non-toxic Head: normocephalic, atraumatic Eyes: bilateral eye normal inspection, bilateral eye PERRL ENT: hearing grossly normal, normal pharynx, TMs + canals normal, uvula midline , moist mucus membranes, other - right lower jaw: mild edema, no palpable masses or fluctuance, no tenderness to percussion of teeth of lower right side, dental decay of teeth on upper right side, no fluctuance in the gumline Neck: full range of motion, supple/symm/no masses Respiratory: chest non-tender, lungs clear, normal breath sounds, no respiratory distress, speaking full sentences Cardiovascular #1: regular rate, rhythm, no edema Musculoskeletal: back normal, gait/station normal, normal range of motion, non- tender Neurologic: alert, oriented x3, responsive, motor strength/tone normal, sensory intact, speech normal Psychiatric: mood/affect normal Skin: normal color, no rash, warm/dry, well hydrated Lymphatic: no adenopathy Medical Decision Making PA Attestation Dr. Marie is my supervising Physician whom patient management has been discussed with. Diagnostic Impression: Primary Impression: Dental infection ER Course Pt. presents to the ED c/o dental abscess Ddx considered but are not limited to cellulitis, abscess, dental caries, gingivitis. Vital signs: are WNL, pt. is afebrile ORDERS: None required at this time. ED INTERVENTIONS: None required at this time. DISCHARGE: -Rx provided for Augmentin -Rx provided for Chlorhexidine mouthwash -Rx provided for Ibuprofen At this time pt. is stable for d/c to home. Will provide printed patient care instructions and any necessary prescriptions. Care plan and follow up instructions have been discussed with the patient prior to discharge. Patient instructed to follow-up with primary care provider in 3-5 days for wound recheck. Patient instructed to follow-up with dentist. Patient questions asked and answered. ER precautions given. Patient instructed to return to ER immediately for any new or worsening of symptoms including but not limited to fever, worsening of pain symptoms. Last Vital Signs Date Time Temp Pulse Resp B/P (MAP) Pulse Ox O2 Delivery O2 Flow Rate FiO2 11/09/17 18:23 97.7 76 20 155/65 96 Room Air Disposition: HOME, SELF-CARE Condition: Stable Scripts Ibuprofen* (MOTRIN*) 600 Mg Tablet 600 MG ORAL Q8H Y for For Pain, #30 TAB 0 Refills Prov: Juancho Ibrahim 11/09/17 Chlorhexidine Gluconate* (HIBICLENS*) 118 Ml Liquid 118 ML TP BID for 7 Days, ML Prov: Juancho Ibrahim 11/09/17 Amoxicillin/Potassium Clav 875-125 Mg Tab* (AMOX TR-K CLV 875-125 MG TAB*) 1 Each Tablet 1 TAB ORAL EVERY 12 HOURS for 7 Days, #14 TAB Prov: Juancho Ibrahim 11/09/17 Patient Instructions: Abscess Additional Instructions: Followup with primary care provider in 3 -5 days. Followup with dentist in 3-5 days. Take medications as directed. Patient questions asked and answered. ER precautions given, patient instructed to return to ER immediately for any new or worsening of symptoms. Juancho Ibrahim Nov 09, 2017 18:52
[2017-11-09 19:03] VITALS: BP 155/65
[2017-11-09 19:05] VITALS: BP 155/65
== END 2017-11-09 19:05 | disposition home or self-care (01) ==
LOC: EMR 18:44
DX: K04.7 Periapical abscess without sinus (principal); Z88.0 Allergy status to penicillin; Z91.013 Allergy to seafood
CPT/HCPCS: 99284

== ENCOUNTER 2017-12-05 14:29 | Emergency (ER) | payer MEDICAID ==
[~2017-12-05] VITALS: Ht 160 cm; Wt 73.0 kg
[~2017-12-05 14:29] MED LIST changes: +AMOX TR-K CLV1 EAC2 ORAL; +HIBICLENS118 ML TP
[2017-12-05] MEDS ORDERED: Tetracaine 0.5% Opth 4ml Soln LEFT EYE ONE (15:00)
[2017-12-05] MEDS ORDERED: Fluorescein Strips LEFT EYE ONE (15:00)
[2017-12-05 15:33] VITALS: BP 135/70
--- NOTE | 2017-12-05 15:34 | Emergency Room Report ---
History of Present Illness General Chief Complaint: Eye Problems Source: Patient Present Illness HPI 62 YO Female presents to the ED c/o left eye swelling and discharge since this am. pt. reports yesterday had a scratching/itchy sensation and she believes dust flew into her eye. she reports 9/10 pain in the upper eyelid with erythema and swelling. pt. states her eye felt stuck shut this am and "sticky". pt. denies visual changes, reports some increased tearing. denies trauma to the eye otherwise. She denies eye pain with movements. pt. localizes pain and discomfort to the upper eyelid. Denies: Injection, Loss of vision, Floaters, Flashing lights, Diplopia/or blurry vision. Does not wear contact lenses. Allergies: Coded Allergies: CEPHALEXIN (Verified Allergy, Unknown, 04/18/16) Dairy (Verified Allergy, Unknown, 12/05/17) SHELLFISH DERIVED (Unverified Allergy, Unknown, 11/17/16) Uncoded Allergies: SHELLFISH (Allergy, Unknown, 11/17/16) Patient History Past Medical History: see triage record Past Surgical History: none Pertinent Family History: none Last Menstrual Period: Post Now: No Immunizations: UTD Reviewed Nursing Documentation: PMH: Agreed, PSxH: Agreed Review of Systems All Other Systems: negative except mentioned in HPI Physical Exam Vital Signs Date Time Temp Pulse Resp B/P (MAP) Pulse Ox O2 Delivery O2 Flow Rate FiO2 12/05/17 14:42 98.2 63 19 137/77 96 Room Air 98.2 Sp02 EP Interpretation: reviewed, normal General Appearance: no apparent distress, alert, GCS 15, non-toxic Head: normocephalic, atraumatic Eyes: bilateral eye normal inspection, bilateral eye PERRL, bilateral eye EOMI , bilateral eye other - VA 20/30, 20/40, no fluoroscene uptake, no injection, upper right lid edema and erythema. ENT: hearing grossly normal, normal voice Neck: full range of motion Respiratory: lungs clear, normal breath sounds, speaking full sentences Cardiovascular #1: regular rate, rhythm Musculoskeletal: back normal, gait/station normal, normal range of motion, non- tender Neurologic: alert, oriented x3, responsive, motor strength/tone normal, sensory intact, speech normal, grossly normal Psychiatric: judgement/insight normal Skin: no rash, warm/dry, well hydrated, other - right upper lid edema and erythema. Medical Decision Making PA Attestation Dr. payton is my supervising Physician whom patient management has been discussed with. Diagnostic Impression: Primary Impression: Dacrocystitis Qualified Codes: H04.302 - Unspecified dacryocystitis of left lacrimal passage ER Course 62 YO Female presents to the ED c/o left eye swelling and discharge since this am. pt. reports yesterday had a scratching/itchy sensation and she believes dust flew into her eye. she reports 9/10 pain in the upper eyelid with erythema and swelling. pt. states her eye felt stuck shut this am and "sticky". pt. denies visual changes, reports some increased tearing. denies trauma to the eye otherwise. She denies eye pain with movements. pt. localizes pain and discomfort to the upper eyelid. Denies: Injection, Loss of vision, Floaters, Flashing lights, Diplopia/or blurry vision. Does not wear contact lenses. Ddx considered but are not limited to: corneal abrasion, acute glaucoma, globe rupture, FB, Corneal Ulcer, conjunctivitis. Iridis Vital signs: are WNL, pt. is afebrile H&PE are most consistent with: corneal abrasion ORDERS: -Tetracaine and Fluorescein Stain of the Left eye: -No Increase fluorescein uptake, no involvement of the iris or pupil. Negative Alex sign. Pt. did not have positive relief of pain with tetracaine drops. there was negative evidence of Fb, deep ulcer, or rupture. ED INTERVENTIONS: none at this time. Pt. also requests refill of her mouth wash-chlorhexidine. d/w pt. follow up with ophthalmology within 3 days ( 72 hours). d/w pt. hot compresses and gentle massage of the upper eyelid, and to return promptly to ED with worsening or new symptoms. DISCHARGE: At this time pt. is stable for d/c to home. Will provide printed patient care instructions, and any necessary prescriptions. Care plan and follow up instructions have been discussed with the patient prior to discharge. . Last Vital Signs Date Time Temp Pulse Resp B/P (MAP) Pulse Ox O2 Delivery O2 Flow Rate FiO2 12/05/17 15:25 98.2 12/05/17 14:42 63 19 137/77 96 Room Air Disposition: HOME, SELF-CARE Condition: Stable Scripts Chlorhexidine Gluconate (CHLORHEXIDINE GLUCONATE) 473 Ml Mouthwash 10 ML MM BID, #437 ML Prov: Callie Rios 12/05/17 Erythromycin Base (ERYTHROMYCIN*) 3.5 Gm Oint...g. 1 APPLIC LEFT EYE TID for 7 Days, #3.5 GM 0 Refills Prov: Callie Rios 12/05/17 Amoxicillin/Potassium Clav 875-125* (AUGMENTIN 875-125 TABLET*) 1 Each Tablet 1 TAB ORAL TWICE A DAY for 7 Days, #14 TAB Prov: Callie Rios 12/05/17 Referrals: [facility] (PCP) Patient Instructions: Dacryocystitis Additional Instructions: Take medications as directed. Follow up with an OPHTHALMOLOGY in 3-5 days, even if your symptoms have resolved. --Please review list of primary care clinics, if you do not already have a primary care provider Return sooner to ED if new symptoms occur, or current symptoms become worse. - Please note that this Emergency Department Report was dictated using Localmindforming machine tender technology software, occasionally this can lead to erroneous entry secondary to interpretation by the dictation equipment. Callie Rios Dec 05, 2017 15:33
[2017-12-05] MEDS ORDERED: ERYTHROMYCIN3.5 GM LEFT EYE (15:35)
[2017-12-05] MEDS ORDERED: AUGMENTIN 875-1 EAC1 ORAL (15:35)
[2017-12-05] MEDS ORDERED: CHLORHEXIDINE473 ML MM (15:38)
[2017-12-05 15:42] VITALS: BP 135/70
== END 2017-12-05 15:43 | disposition home or self-care (01) ==
LOC: EMR 14:43
DX: H04.302 Unspecified dacryocystitis of left lacrimal passage (principal); Z88.1 Allergy status to other antibiotic agents; Z91.011 Allergy to milk products; Z91.013 Allergy to seafood
CPT/HCPCS: 99283

== ENCOUNTER 2018-03-10 13:57 | Emergency (ER) | payer MEDICAID ==
[~2018-03-10] VITALS: Ht 160 cm; Wt 70.8 kg
[~2018-03-10 13:57] MED LIST changes: +ERYTHROMYCIN3.5 GM LEFT EYE
[2018-03-10 14:36] VITALS: BP 119/65
[2018-03-10] MEDS ORDERED: BENADRYL25 MG ORAL (14:42)
[2018-03-10] MEDS ORDERED: AUGMENTIN 875-1 EAC1 ORAL (14:42)
[2018-03-10] MEDS ORDERED: HIBICLENS118 ML TP (14:42)
--- NOTE | 2018-03-10 14:42 | Emergency Room Report ---
History of Present Illness General Chief Complaint: Eye Problems Present Illness HPI 62-year-old female patient presents ER complaining of left eyelid swelling for the past 2 days. Reports symptoms first began on Sunday night and slowly increased. Reports clear eye drainage from eyes and pruritus. Denies vision changes. Denies wearing contacts or glasses. Denies loss of vision or curtain coming down, denies [place] in vision. Denies fever, chest pain, shortness breath. Denies vomiting, ear pain. reports was walking dog and feels like some of the poop that she was picking up gotten her eyes. Denies foreign body sensation. Denies acute trauma. Denies pain with eye movement. Requesting refill of chlorhexidine mouthwash for recurrent infections. Denies acute dental symptoms. Allergies: Coded Allergies: CEPHALEXIN (Verified Allergy, Unknown, 04/18/16) Dairy (Verified Allergy, Unknown, 12/05/17) SHELLFISH DERIVED (Unverified Allergy, Unknown, 11/17/16) Uncoded Allergies: SHELLFISH (Allergy, Unknown, 11/17/16) Patient History Past Medical History: see triage record Reviewed Nursing Documentation: PMH: Agreed; PSxH: Agreed Review of Systems All Other Systems: negative except mentioned in HPI Physical Exam Vital Signs Date Time Temp Pulse Resp B/P (MAP) Pulse Ox O2 Delivery O2 Flow Rate FiO2 03/10/18 14:01 98.0 80 20 119/65 99 Room Air 98.1 Sp02 EP Interpretation: reviewed, normal General Appearance: well appearing, no apparent distress, alert, GCS 15, non- toxic Head: normocephalic, atraumatic Eyes: left eye lid inflammation; bilateral eye normal inspection, bilateral eye PERRL ENT: hearing grossly normal, normal pharynx, no angioedema, normal voice, TMs + canals normal, uvula midline, moist mucus membranes Neck: full range of motion Respiratory: lungs clear, normal breath sounds, no rhonchi, no respiratory distress, no accessory muscle use, no wheezing, speaking full sentences Cardiovascular #1: regular rate, rhythm, no edema Gastrointestinal: non tender, soft, no mass, non-distended, no guarding, no rebound Genitourinary: no CVA tenderness Musculoskeletal: back normal, digits/nails normal, gait/station normal, normal range of motion, non-tender Neurologic: alert, oriented x3, responsive, motor strength/tone normal, sensory intact Psychiatric: mood/affect normal Skin: no rash Lymphatic: no adenopathy Medical Decision Making PA Attestation Dr. Tracy is my supervising Physician whom patient management has been discussed with. Diagnostic Impression: Primary Impression: Preseptal cellulitis of left upper eyelid ER Course Pt. presents to the ED c/o eye infection. Ddx considered but are not limited to rash, cellulitis, abscess, atopic dermatitis, bacterial conjunctivitis, blepharitis. No pain with eye movement, no fever, no vision changes, no proptosis, no diplopia, low suspicion for postseptal cellulitis, does not require CT at this time. VA WNL for patient, see nurse note. Followup with handtools repairer for further testing. Vital signs: are WNL, pt. is afebrile ORDERS: None required at this time, the diagnosis is clinical ER COURSE: No conjunctival injection, no foreign body sensation, low suspicion for corneal abrasion at this time. Mild erythema and edema of left upper eye, reports pruritus. Patient physical exam consistent with allergic reaction vs preseptal cellulitis. Will provide patient with abx medication to cover for possible infection. Instructed patient to take Benadryl for symptoms, SE may cause drowsiness, do not take prior to drinking, driving, or operating heavy machinery. Needs 24 hour followup with national coverage specialist. Followup with handtools repairer. Return to ER for new or worsening of symptoms immediately. Patient seen and evaluated by Dr. Tracy, agrees with treatment and plan. Will provided refill of chlorhexidine for patient. Followup with PCP and dentist for further treatment and referral. Wash hands. Do not touch eyes. DISCHARGE: -Rx provided for Amox/Clav -Rx provided for Chlorhexidine Rx provided for Benadryl At this time pt. is stable for d/c to home. Patient resting comfortably, in no acute distress, nontoxic appearing, smiling and laughing. Will provide printed patient care instructions, and any necessary prescriptions. Care plan and follow up instructions have been discussed with the patient prior to discharge. Patient instructed to follow-up with primary care provider and national coverage specialist in 24 hours. Patient questions asked and answered. patient reports understanding and agreement to treatment plan. ER precautions given. Patient instructed to return to ER immediately for any new or worsening of symptoms including but not limited to increasing SOB, persistent fever, intractable vomiting, calf pain, vision loss, vision changes. - Please note that this Emergency Department Report was dictated using [employer] technician technology software, occasionally this can lead to erroneous entry secondary to interpretation by the dictation equipment. Last Vital Signs Date Time Temp Pulse Resp B/P (MAP) Pulse Ox O2 Delivery O2 Flow Rate FiO2 03/10/18 14:01 98.0 80 20 119/65 99 Room Air 98.1 Disposition: HOME, SELF-CARE Condition: Stable Scripts Diphenhydramine Hcl* (BENADRYL*) 25 Mg Capsule 25 MG ORAL BID PRN for Itching, #30 CAP Prov: Juancho Ibrahim 03/10/18 Amoxicillin/Potassium Clav 875-125* (AUGMENTIN 875-125 TABLET*) 1 Each Tablet 1 TAB ORAL TWICE A DAY for 7 Days, #14 TAB Prov: Juancho Ibrahim 03/10/18 Chlorhexidine Gluconate* (HIBICLENS*) 118 Ml Liquid 10 ML TP BID, #118 ML Prov: Juancho Ibrahim 03/10/18 Patient Instructions: Preseptal Cellulitis, Adult Additional Instructions: Followup with primary care provider in 2-3 days for further treatment and follow -up. Follow-up with community marketing manager in 24 hours. Follow-up with dentist. Take medications as directed. Patient questions asked and answered. ER precautions given, patient instructed to return to ER immediately for any new or worsening of symptoms. Juancho Ibrahim Mar 10, 2018 14:42
[2018-03-10 16:03] VITALS: BP 119/65
== END 2018-03-10 15:00 | disposition home or self-care (01) ==
LOC: EMR 14:40
DX: L03.213 Periorbital cellulitis (principal); Z88.1 Allergy status to other antibiotic agents; Z91.013 Allergy to seafood
CPT/HCPCS: 99284

== ENCOUNTER 2018-04-20 14:42 | Emergency (ER) | payer MEDICAID ==
[~2018-04-20] VITALS: Ht 160 cm; Wt 70.8 kg
[~2018-04-20 14:42] MED LIST changes: +BENADRYL25 MG ORAL
[2018-04-20 15:02] VITALS: BP 122/71
--- NOTE | 2018-04-20 15:31 | Emergency Room Report ---
History of Present Illness General Chief Complaint: Eye Problems Present Illness HPI 63-year-old female patient presents ER complaining of right eye swelling for the past 3 days. Reports history of similar symptoms in the past, has previously been seen in this ER for similar symptoms. Reports crusting. Denies vision loss. Denies sparker curtain coming down a field in vision. Denies fever, chest pain, shortness breath, vomiting. Reports history of, States She May Be Allergic. Reports Has Been Using Cool Compresses and Benadryl. Requesting Refill of Benadryl Medication. Also Requesting Refill of Chlorhexidine Medication Refill for Mouthwash. Allergies: Coded Allergies: CEPHALEXIN (Verified Allergy, Unknown, 04/18/16) Dairy (Verified Allergy, Unknown, 12/05/17) SHELLFISH DERIVED (Unverified Allergy, Unknown, 11/17/16) Uncoded Allergies: SHELLFISH (Allergy, Unknown, 11/17/16) Patient History Past Medical History: see triage record Reviewed Nursing Documentation: PMH: Agreed; PSxH: Agreed Nursing Documentation-PMH Hx Cardiac Problems: No Hx Hypertension: No Hx Pacemaker: No Hx Asthma: No Hx COPD: No - PNA Hx Diabetes: No History Of Psychiatric Problem: No Hx Neurological Problems: Yes - Lopez's palsy, chronic back pain Hx Cerebrovascular Accident: No Hx Seizures: No Review of Systems All Other Systems: negative except mentioned in HPI Physical Exam Vital Signs Date Time Temp Pulse Resp B/P (MAP) Pulse Ox O2 Delivery O2 Flow Rate FiO2 04/20/18 14:55 98.0 70 14 122/71 94 Room Air 98.1 Sp02 EP Interpretation: reviewed, normal General Appearance: well appearing, no apparent distress, alert, GCS 15, non- toxic Head: normocephalic, atraumatic Eyes: right eye lid inflammation; bilateral eye normal inspection, bilateral eye PERRL, bilateral eye EOMI, bilateral eye other - no injection ENT: hearing grossly normal, normal pharynx, no angioedema, normal voice, uvula midline, moist mucus membranes Neck: full range of motion Respiratory: lungs clear, normal breath sounds, no rhonchi, no respiratory distress, no accessory muscle use, no wheezing, speaking full sentences Cardiovascular #1: regular rate, rhythm, no edema Musculoskeletal: back normal, digits/nails normal, gait/station normal, normal range of motion, non-tender Psychiatric: mood/affect normal Skin: no rash - no erythema, no edema, no warmth to palpation Medical Decision Making PA Attestation Dr. Randhawa is my supervising Physician whom patient management has been discussed with. Diagnostic Impression: Primary Impression: Allergic conjunctivitis ER Course Pt. presents to the ED c/o swollen eyes. Ddx considered but are not limited to allergic conjunctivitis, bacterial conjunctivitis, orbital cellulitis, URI, sinusitis, stye, chalazion. Vital signs: are WNL, pt. is afebrile ER COURSE: No pain with eye movement, no fever, no vision changes, no proptosis, no diplopia, low suspicion for postseptal cellulitis, does not require CT at this time. physical exam shows swelling of upper and lower eyelid, no erythema to touch, no crusting or injection noted, likely allergic conjunctivitis bleeding to eyelid swelling. PE not consistent with stye. Take Claritin during the day and Benadryl at night, side effect of drowsiness with Benadryl. Do not take prior to driving heavy machinery. followup with ophthalmology due to recurrence of symptoms. Followup with PCP to discuss further referral. Apply cool compresses to affected area. Avoid allergens. Per patient request will provide refill of chlorhexidine. Follow-up with dentist. Patient seen and evaluated by Dr. Randhawa, agrees with assessment and plan. DISCHARGE: Rx provided for Benadryl. Informed medication may cause drowsiness. Rx provided for Claritin Rx provided for Chlorhexidine At this time pt. is stable for d/c to home. Patient is resting comfortably, in no acute distress, nontoxic appearing. Will provide printed patient care instructions, and any necessary prescriptions. Patient instructed to follow up with wood crafter and discuss further follow up with fisher pound net or trap. Care plan and follow up instructions have been discussed with the patient prior to discharge. Patient questions asked and answered. Patient reports understanding and agreement to treatment plan. ER precautions given. Patient instructed to return to ER immediately for any new or worsening of symptoms. - Please note that this Emergency Department Report was dictated using [employer] installer technology software, occasionally this can lead to erroneous entry secondary to interpretation by the dictation equipment. Last Vital Signs Date Time Temp Pulse Resp B/P (MAP) Pulse Ox O2 Delivery O2 Flow Rate FiO2 7/14/18 15:02 98.1 14 122/71 94 Room Air 98.1 04/20/18 14:55 70 Disposition: HOME, SELF-CARE Condition: Stable Scripts Loratadine (CLARITIN) 10 Mg Tablet 10 MG ORAL DAILY, #30 TAB Prov: Juancho Ibrahim 04/20/18 Chlorhexidine Gluconate* (HIBICLENS*) 118 Ml Liquid 118 ML TP BID, #118 ML Prov: Juancho Ibrahim 04/20/18 Diphenhydramine Hcl* (BENADRYL*) 25 Mg Capsule 25 MG ORAL QHS PRN for Itching, #30 CAP Prov: Juancho Ibrahim 04/20/18 Patient Instructions: Allergic Conjunctivitis, [id number] Additional Instructions: follow-up with ophthalmology in one to 2 days. Apply cool compresses to affected area. Followup with primary care provider in 3 -5 days. Take medications as directed. psychiatric drowsiness with Benadryl, did not take prior to drinking, driving, operating heavy machinery. Avoid potential allergens. Patient questions asked and answered. ER precautions given, patient instructed to return to ER immediately for any new or worsening of symptoms. Juancho Ibrahim Apr 20, 2018 15:31
[2018-04-20] MEDS ORDERED: HIBICLENS118 ML TP (15:33)
[2018-04-20] MEDS ORDERED: BENADRYL25 MG ORAL (15:33)
[2018-04-20] MEDS ORDERED: CLARITIN10 MG ORAL (15:33)
[2018-04-20 15:40] VITALS: BP 122/71
== END 2018-04-20 15:40 | disposition home or self-care (01) ==
LOC: EMR 15:37
DX: H10.11 Acute atopic conjunctivitis, right eye (principal); G51.0 Bell's palsy; G89.29 Other chronic pain; Z88.1 Allergy status to other antibiotic agents; Z91.013 Allergy to seafood
CPT/HCPCS: 99284

== ENCOUNTER 2019-01-05 14:30 | Emergency (ER) | payer MEDICAID ==
[~2019-01-05] VITALS: Ht 160 cm; Wt 70.3 kg
[~2019-01-05 14:30] MED LIST changes: +CLARITIN10 MG ORAL
--- NOTE | 2019-01-05 14:51 | NUR ---
ED Nurse Note:pt. came with right eye swelling and itching with discharge, visual acuity done
--- NOTE | 2019-01-05 15:24 | Emergency Room Report ---
History of Present Illness General Chief Complaint: Eye Problems Source: Patient (Callie Rios) Present Illness HPI 63-year-old female presents to the emergency department complaining of swelling , erythema and warmth to the eyelids of the right eye progressive since last night. Patient reports this morning she noticed sticky discharge as well. reports 8/10 in severity tenderness/pain under the right eye and just lateral to the eye as well. denies pain inside of the eye. She denies scratching or foreign body sensation. Patient reports on occasion the upper eyelid does itch however was not itching prior to onset of symptoms. Patient denies fevers or chills. She denies pain with eye movements. She denies contact lens use. Denies Loss of vision, Floaters, Flashing lights, Diplopia/blurry vision, Increased tearing. ~ Pt. also c/o persistent wet cough with inability to clear mucus x 4 weeks. reports exposed to black mold at home. denies hx of immune compromise. Denies hx of bronchitis, asthma or smoking. reports no relief with herbal remedies. (Callie Rios) Allergies: Coded Allergies: CEPHALEXIN (Verified Allergy, Unknown, 04/18/16) Dairy (Verified Allergy, Unknown, 12/05/17) SHELLFISH DERIVED (Unverified Allergy, Unknown, 11/17/16) Uncoded Allergies: SHELLFISH (Allergy, Unknown, 11/17/16) Patient History Past Medical History: see triage record Past Surgical History: none Pertinent Family History: none Last Menstrual Period: na Immunizations: UTD Reviewed Nursing Documentation: PMH: Agreed; PSxH: Agreed (Callie Rios) Nursing Documentation-PMH Past Medical History: No History, Except For Hx Cardiac Problems: No Hx Hypertension: No Hx Pacemaker: No Hx Asthma: No Hx Diabetes: No Hx Neurological Problems: Yes - Lopez's palsy, chronic back pain Hx Cerebrovascular Accident: No Hx Seizures: No (Callie Rios) Review of Systems All Other Systems: negative except mentioned in HPI (Callie Rios) Physical Exam Vital Signs Date Time Temp Pulse Resp B/P (MAP) Pulse Ox O2 Delivery O2 Flow Rate FiO2 01/05/19 14:39 99.0 83 20 183/94 97 Room Air Sp02 EP Interpretation: reviewed, normal General Appearance: no apparent distress, alert, GCS 15, non-toxic Head: normocephalic, atraumatic Eyes: bilateral eye visual acuity - 20/40 bilaterally , bilateral eye other - no [id number] pupil. Erythema and warmth to lower eye lid and facial ST , no pain with eye movements, some swelling and erythema to the lateral aspect of the upper lid of the right eye. visible d/c in the right eye. ENT: hearing grossly normal, normal voice Neck: full range of motion Respiratory: chest non-tender, lungs clear, normal breath sounds, no respiratory distress, no accessory muscle use, no wheezing, speaking full sentences Cardiovascular #1: regular rate, rhythm Musculoskeletal: gait/station normal, normal range of motion, non-tender Neurologic: alert, oriented x3, responsive, motor strength/tone normal, sensory intact, speech normal, grossly normal Psychiatric: judgement/insight normal Skin: normal color, no rash, warm/dry, well hydrated Lymphatic: no adenopathy (Callie Rios) Medical Decision Making PA Attestation Dr. Bernard is my supervising Physician whom patient management has been discussed with. (Callie Rios) Diagnostic Impression: Primary Impression: Preseptal cellulitis of right eye Additional Impression: Cough in adult ER Course 63-year-old female presents to the emergency department complaining of swelling , erythema and warmth to the eyelids of the right eye progressive since last night. Patient reports this morning she noticed sticky discharge as well. reports 8/10 in severity tenderness/pain under the right eye and just lateral to the eye as well. denies pain inside of the eye. She denies scratching or foreign body sensation. Patient reports on occasion the upper eyelid does itch however was not itching prior to onset of symptoms. Patient denies fevers or chills. She denies pain with eye movements. She denies contact lens use. Denies Loss of vision, Floaters, Flashing lights, Diplopia/blurry vision, Increased tearing. ~ Pt. also c/o persistent wet cough with inability to clear mucus x 4 weeks. reports exposed to black mold at home. denies hx of immune compromise. Denies hx of bronchitis, asthma or smoking. reports no relief with herbal remedies. Ddx considered but are not limited to: orbital cellulitis, preseptal cellulitis , allergic conjunctivitis, corneal abrasion, acute glaucoma, globe rupture, FB, Corneal Ulcer, conjunctivitis. Iridis, orbital cellulitis,keratitis, sinusitis Vital signs: are WNL, pt. is afebrile H&PE are most consistent with: Preseptal cellulitis with secondary bacterial conjunctivitis of the right eye. ORDERS: none at this time. ED INTERVENTIONS: none at this time. DISCHARGE: At this time pt. is stable for d/c to home. Will provide printed patient care instructions, and any necessary prescriptions. Care plan and follow up instructions have been discussed with the patient prior to discharge. (Callie Rios) Chest X-Ray Diagnostic Results Chest X-Ray Diagnostic Results : Chest X-Ray Ordered: Yes # of Views/Limited/Complete: 1 View Indication: Shortness of Breath EP Interpretation: Yes PA Xray: Interpretation reviewed, by supervising MD, and agrees with findings. Interpretation: no consolidation, no effusion, no pneumothorax, no acute cardiopulmonary disease Impression: No acute disease Electronically Signed by: Callie Rios PA-C (Callie Rios) Chest X-Ray Diagnostic Results : Electronically Signed by: Amanda Marroquin documentation of Xray reviewed by me and is accurate, Mykel Bernard MD (Mykel Bernard MD) Last Vital Signs Date Time Temp Pulse Resp B/P (MAP) Pulse Ox O2 Delivery O2 Flow Rate FiO2 01/05/19 14:39 99.0 83 20 183/94 97 Room Air Status: improved (Callie Rios) Disposition: HOME, SELF-CARE Condition: Stable Scripts Ofloxacin (OCUFLOX) 5 Ml Drops 2 DROP OP TID, #5 ML Prov: Callie Rios 01/05/19 Acetaminophen With Codeine (T#3) (TYLENOL #3 TAB*) Y Tab 1 TAB ORAL Q6H PRN for For Pain, #10 TAB Prov: Callie Rios 01/05/19 Guaifenesin (Guaifenesin) 1,200 Mg Tab.er.12h 1200 MG PO Q12HR, #20 TAB Prov: Callie Rios 01/05/19 Amoxicillin/Potassium Clav 875-125* (AUGMENTIN 875-125 TABLET*) 1 Each Tablet 1 TAB ORAL TWICE A DAY, #14 TAB Prov: Callie Rios 01/05/19 Referrals: NOT CHOSEN IPA/,REFERRING (PCP) Patient Instructions: Preseptal Cellulitis, Adult Additional Instructions: Take medications as directed. Follow up with a Building Custodial Supervisor in 3 days, even if your symptoms have resolved. --Please review list of primary care clinics, if you do not already have a primary care provider Return sooner to ED if new symptoms occur, or current symptoms become worse. - Please note that this Emergency Department Report was dictated using [employer] SR[employer] shop technician technology software, occasionally this can lead to erroneous entry secondary to interpretation by the dictation equipment. Callie Rios Jan 05, 2019 15:24 Mykel Bernard MD Jan 08, 2019 01:51
[2019-01-05] MEDS ORDERED: Augmentin 875mg Tab ORAL ONE (15:30)
[2019-01-05] MEDS ORDERED: OCUFLOX5 ML OP (16:03)
[2019-01-05] MEDS ORDERED: AUGMENTIN 875-1 EAC1 ORAL (16:03)
[2019-01-05] MEDS ORDERED: ACETAMINOPHEN-1 EAC1 ORAL (16:03)
[2019-01-05] MEDS ORDERED: GUAIFENESIN1200 MG PO (16:03)
[2019-01-05 16:24] VITALS: BP 158/92
--- NOTE | 2019-01-05 16:24 | NUR ---
ER DISCHARGE NOTE: Patient is cleared to be discharged per ERMD, pt is aox4, on room air, with stable vital signs. pt was given dc and prescription instructions, pt was able to verbalize understanding, pt is able to ambulate with steady gait. pt took all belongings.
[2019-01-05 16:25] VITALS: BP 158/92
--- NOTE | 2019-01-06 11:15 | Diagnostic Imaging Report ---
Indication: Chest pain Technique: One view of the chest Comparison: none Findings: There is minimal atelectasis at the lung bases bilaterally. The heart is borderline enlarged. No definite infiltrates, effusions, or congestion. Impression: Borderline cardiomegaly Minimal bilateral basilar atelectatic changes. No acute process otherwise
== END 2019-01-05 16:26 | disposition home or self-care (01) ==
LOC: EMR 15:15
DX: H00.031 Abscess of right upper eyelid (principal); R05 Cough; Z88.1 Allergy status to other antibiotic agents; Z91.013 Allergy to seafood; G89.29 Other chronic pain
CPT/HCPCS: 71045; 99283

== ENCOUNTER 2019-02-27 13:43 | Emergency (ER) | payer MEDICAID ==
[~2019-02-27] VITALS: Ht 160 cm; Wt 72.1 kg
[~2019-02-27 13:43] MED LIST changes: +GUAIFENESIN1200 MG PO; +OCUFLOX5 ML OP
[2019-02-27 14:10] VITALS: BP 141/84
--- NOTE | 2019-02-27 14:30 | Emergency Room Report ---
History of Present Illness General Chief Complaint: Pain Source: Patient Present Illness HPI This is a 63-year-old female complains of 3 weeks of left breast pain that radiates to the lateral aspect of her left chest. And of the left shoulder. She describes it as a burning like sensation. She states about 3 weeks ago she had redness along the left breast with a fever of 101. She did not seek any medical attention during that time. She states that the redness has resolved and the fever has resolved. However, the pain is still there. Exacerbated by palpation. Allergies: Coded Allergies: CEPHALEXIN (Verified Allergy, Unknown, 04/18/16) Dairy (Verified Allergy, Unknown, 12/05/17) SHELLFISH DERIVED (Unverified Allergy, Unknown, 11/17/16) Uncoded Allergies: SHELLFISH (Allergy, Unknown, 11/17/16) Patient History Past Medical History: none Nursing Documentation-[facility] Past Medical History: No History, Except For Hx Hypertension: No Hx Pacemaker: No Hx Asthma: No Hx Diabetes: No Hx Gastrointestinal Problems: Yes - fatty liver-non alcoholic Hx Neurological Problems: Yes - Lopez's palsy, chronic back pain Hx Cerebrovascular Accident: No Hx Seizures: No Review of Systems All Other Systems: negative except mentioned in HPI Physical Exam Vital Signs Date Time Temp Pulse Resp B/P (MAP) Pulse Ox O2 Delivery O2 Flow Rate FiO2 02/27/19 13:52 98.8 69 16 141/84 (103) 90 Room Air General Appearance: well appearing, no apparent distress Head: normocephalic, atraumatic ENT: hearing grossly normal, normal voice Neck: full range of motion, supple Respiratory: no respiratory distress, speaking full sentences Cardiovascular #1: normal inspection, no edema, other - The breast exam of the left breast with a female social services coordinator revealed no masses, no redness, no nipple discharge, no lymphadenopathy. There is tenderness along the intercostal space , ribs 3 and 4. Gastrointestinal: normal inspection, non tender Musculoskeletal: normal inspection, back normal Medical Decision Making Diagnostic Impression: Primary Impression: Chest wall pain ER Course Patient was emergently seen and evaluated. Multiple bedside evaluations were done. The patient nontoxic-appearing. Particularly very concerned about acute pulmonary embolism, mastitis, abscess, fracture, and thoracic tumor, patient did have a CTA done. Blood work was reviewed. I see no evidence of sepsis. The patient is afebrile. The patient will be started on gabapentin for pain. She is to follow-up with her primary care physician as an outpatient. I also did consider zoster infection, however, no evidence of pain in a dermatomal fashion. There is no rashes. Laboratory Tests Test 02/27/19 14:30 White Blood Count 4.8 K/UL (4.8-10.8) Red Blood Count 3.87 M/UL (4.20-5.40) L Hemoglobin 12.6 G/DL (12.0-16.0) Hematocrit 36.9 % (37.0-47.0) L Mean Corpuscular Volume 95 FL (80-99) Mean Corpuscular Hemoglobin 32.5 PG (27.0-31.0) H Mean Corpuscular Hemoglobin Concent 34.1 G/DL (32.0-36.0) Red Cell Distribution Width 11.8 % (11.6-14.8) Platelet Count 128 K/UL (150-450) L Mean Platelet Volume 7.6 FL (6.5-10.1) Neutrophils (%) (Auto) 43.2 % (45.0-75.0) L Lymphocytes (%) (Auto) 45.8 % (20.0-45.0) H Monocytes (%) (Auto) 7.5 % (1.0-10.0) Eosinophils (%) (Auto) 2.6 % (0.0-3.0) Basophils (%) (Auto) 0.9 % (0.0-2.0) Sodium Level 141 MMOL/L (136-145) Potassium Level 4.1 MMOL/L (3.5-5.1) Chloride Level 107 MMOL/L (98-107) Carbon Dioxide Level 26 MMOL/L (21-32) Anion Gap 8 mmol/L (5-15) Blood Urea Nitrogen 17 mg/dL (7-18) Creatinine 0.8 MG/DL (0.55-1.30) Estimate Glomerular Filtration Rate > 60 mL/min (>60) Glucose Level 106 MG/DL (74-106) Calcium Level 9.0 MG/DL (8.5-10.1) Total Bilirubin 0.6 MG/DL (0.2-1.0) Aspartate Amino Transferase (AST) 121 U/L (15-37) H Alanine Aminotransferase (ALT) 92 U/L (12-78) H Alkaline Phosphatase 90 U/L (46-116) Total Protein 7.2 G/DL (6.4-8.2) Albumin 3.0 G/DL (3.4-5.0) L Globulin 4.2 g/dL Albumin/Globulin Ratio 0.7 (1.0-2.7) L CT/MRI/US Diagnostic Results CT/MRI/US Diagnostic Results : Impression CTA showed no pulmonary embolism Last Vital Signs Date Time Temp Pulse Resp B/P (MAP) Pulse Ox O2 Delivery O2 Flow Rate FiO2 02/27/19 13:52 98.8 69 16 141/84 (103) 90 Room Air Status: improved Disposition: HOME, SELF-CARE Condition: Stable Scripts Gabapentin (Neurontin) 300 Mg Capsule 300 MG ORAL THREE TIMES A DAY, #15 CAP 0 Refills Prov: NABEEL DARLING 02/27/19 Patient Instructions: Chest Wall Pain, [id number] NABEEL DARLING February 27, 2019 14:30
[2019-02-27 14:42] LABS: BASOPHILS % (AUTO) 0.9 % (0.0-2.0); EOSINOPHILS % (AUTO) 2.6 % (0.0-3.0); HEMATOCRIT 36.9 % (37.0-47.0); HEMOGLOBIN 12.6 G/DL (12.0-16.0); LYMPHOCYTES % (AUTO) 45.8 % (20.0-45.0); MEAN CORPUSCULAR VOLUME 95 FL (80-99); MONOCYTES % (AUTO) 7.5 % (1.0-10.0); NEUTROPHILS % (AUTO) 43.2 % (45.0-75.0); PLATELET COUNT 128 K/UL (150-450); RED BLOOD COUNT 3.87 M/UL (4.20-5.40); RED CELL DISTRIBUTION WIDTH 11.8 % (11.6-14.8); WHITE BLOOD COUNT 4.8 K/UL (4.8-10.8)
[2019-02-27] MEDS ORDERED: Isovue-370 150ml vial INJ PRN (14:45)
[2019-02-27 14:53] LABS: ANION GAP 8 mmol/L (5-15); BLOOD UREA NITROGEN 17 mg/dL (7-18); CARBON DIOXIDE 26 MMOL/L (21-32); CHLORIDE 107 MMOL/L (98-107); CREATININE 0.8 MG/DL (0.55-1.30); POTASSIUM 4.1 MMOL/L (3.5-5.1); SODIUM 141 MMOL/L (136-145)
[2019-02-27 14:58] LABS: ALANINE AMINOTRANSFERASE 92 U/L (12-78); ALBUMIN/GLOBULIN RATIO 0.7 (1.0-2.7); ALKALINE PHOSPHATASE 90 U/L (46-116); ASPARTATE AMINO TRANSFERASE 121 U/L (15-37); BILIRUBIN,TOTAL 0.6 MG/DL (0.2-1.0)
--- NOTE | 2019-02-27 16:00 | Diagnostic Imaging Report ---
Indication: Chest pain Technique: Continuous helical transaxial imaging of the chest was obtained from the thoracic inlet to the upper abdomen during rapid intravenous contrast administration. Arterial phase of enhancement obtained. Coronal 2-D reformats were also obtained and maximum intensity projection images in multiple planes. Study obtained in a Siemens sensation [address] Automatic Exposure Control was utilized. Total Dose length Product (DLP): 765.[address] Dose Index Volume (CTDIvol): 22.41 mGy Comparison: None Findings: The pulmonary artery is well opacified and shows no filling defects. There is no adenopathy, pleural or pericardial effusions are identified. There is no aortic dissection or aneurysm identified within the chest. Linear densities at the lung bases likely atelectasis noted. The lungs are clear otherwise. Visualized part of the upper abdomen is unremarkable. Impression: No evidence of aortic dissection, aneurysm, or pulmonary embolus. Minimal basal atelectasis The CT scanner at [facility] is accredited by the [employer] and the scans are performed using dose optimization techniques as appropriate to a performed exam including Automatic Exposure control.
[2019-02-27 16:05] VITALS: BP 138/82
[2019-02-27] MEDS ORDERED: NEURONTIN300 MG ORAL (16:13)
[2019-02-27 16:20] VITALS: BP 138/82
== END 2019-02-27 16:20 | disposition home or self-care (01) ==
LOC: EMR 14:42
DX: R07.89 Other chest pain (principal); G89.29 Other chronic pain; Z91.013 Allergy to seafood; Z88.1 Allergy status to other antibiotic agents
CPT/HCPCS: 36415; 71275; 80053; 85025; 99284; Q9967

== ENCOUNTER 2019-03-07 16:15 | Emergency (ER) | payer MEDICAID ==
[~2019-03-07] VITALS: Ht 160 cm; Wt 70.3 kg
[~2019-03-07 16:15] MED LIST changes: +NEURONTIN300 MG ORAL
[2019-03-07] MEDS ORDERED: NKM (16:22)
[2019-03-07 16:26] VITALS: BP 150/83
--- NOTE | 2019-03-07 16:27 | NUR ---
ED Nurse Note: pt walked in due to pain on the left breast started 4 weeks ago, pt stated that she has pcp appointment on sunday and cant wait for it. pt not in acute distress. will continue to monitor.
[2019-03-07] MEDS ORDERED: LMX 515 GM TP (16:37)
--- NOTE | 2019-03-07 16:42 | NUR ---
ED Nurse Note: pt cleared to be d/c per ERMD, pt discharge and aftercare instruction w/ prescription provided, pt advised to follow up with pcp or return to ed if changes in condition, pt education done via discussion and handout, pt verbalized understanding, pt left w/ all belongings, ambulatory w/ steady gait.
[2019-03-07 16:43] VITALS: BP 150/83
--- NOTE | 2019-03-07 18:31 | Emergency Room Report ---
History of Present Illness General Chief Complaint: Pain Source: Patient Present Illness HPI 63-year-old female presents ED for evaluation. Patient complaining of left- sided chest and rib pain. States she's been having this pain for the last month. Was noted to have shingles and treated. States she was then seen here about one week ago with continued pain. Had a workup which was unremarkable and discharged with gabapentin. States that the gabapentin is not helping and she still has pain on her left side ribs. Sharp, 10 out of 10, radiating to the back. Worse with movement. Denies shortness of breath. Denies fevers or chills. No other aggravating relieving factors. Denies any other associated symptoms Allergies: Coded Allergies: CEPHALEXIN (Verified Allergy, Unknown, 03/07/19) Dairy (Verified Allergy, Unknown, 03/07/19) SHELLFISH DERIVED (Unverified Allergy, Unknown, 03/07/19) Uncoded Allergies: SHELLFISH (Allergy, Unknown, 11/17/16) Patient History Past Medical History: none Pertinent Family History: none Social History: Denies: smoking, alcohol use, drug use Last Menstrual Period: 20 YEARS AGO Now: No Immunizations: UTD Reviewed Nursing Documentation: PMH: Agreed; PSxH: Agreed Nursing Documentation-PMH Past Medical History: No History, Except For Hx Hypertension: No Hx Pacemaker: No Hx Asthma: No Hx Diabetes: No Hx Gastrointestinal Problems: Yes - fatty liver-non alcoholic Hx Neurological Problems: Yes - Lopez's palsy, chronic back pain Hx Cerebrovascular Accident: No Hx Seizures: No Review of Systems All Other Systems: negative except mentioned in HPI Physical Exam Vital Signs Date Time Temp Pulse Resp B/P (MAP) Pulse Ox O2 Delivery O2 Flow Rate FiO2 03/07/19 16:17 98.2 80 16 150/83 (105) 96 Room Air Sp02 EP Interpretation: reviewed, normal General Appearance: no apparent distress, alert, GCS 15, non-toxic Head: normocephalic, atraumatic Eyes: bilateral eye normal inspection, bilateral eye PERRL ENT: hearing grossly normal, normal pharynx, no angioedema, normal voice Neck: full range of motion, supple/symm/no masses Respiratory: lungs clear, normal breath sounds, speaking full sentences, other - L sided reproducible chest wall pain Cardiovascular #1: regular rate, rhythm, no edema Cardiovascular #2: 2+ carotid (R), 2+ carotid (L), 2+ radial (R), 2+ radial (L) , 2+ dorsalis pedis (R), 2+ dorsalis pedis (L) Gastrointestinal: normal bowel sounds, non tender, soft, non-distended, no guarding, no rebound Rectal: deferred Genitourinary: normal inspection, no CVA tenderness Musculoskeletal: back normal, gait/station normal, normal range of motion, non- tender Neurologic: alert, oriented x3, responsive, motor strength/tone normal, sensory intact, speech normal Psychiatric: judgement/insight normal, memory normal, mood/affect normal, no suicidal/homicidal ideation Reflexes: 3+ bicep (R), 3+ bicep (L), 3+ tricep (R), 3+ tricep (L), 3+ knee (R) , 3+ knee (L) Skin: normal color, no rash, warm/dry, well hydrated Lymphatic: no adenopathy Medical Decision Making Diagnostic Impression: Primary Impression: Postherpetic neuralgia ER Course Hospital Course 63-year-old female presents ED complaining of reproducible chest wall pain Differential diagnoses include: Rib fracture, MS/unstable angina, contusion, muscle strain Clinical course Patient placed on stretcher. After initial history and physical I reviewed EMR. Patient was seen here about one week ago. Had full workup including labs and CT angiogram which was unremarkable Pain is reproducible. Likely a postherpetic neuralgia. Patient currently on gabapentin. We'll add topical lidocaine. Recommend close follow-up with PMD. States she has a new PMD which she is scheduled to see next week I. I feel this is a highly complex case requiring extensive working including EKG/Rhythm strip, Xray/CT/US, Blood/urine lab work, repeat exams while in ED, and administration of strong opiates/narcotics for pain control, admission to hospital or close patient follow up. Diagnosis - postherpetic neuralgia Stable and discharged to home with prescription for topical lidocaine. continue gabapentin as prescribed. Instructed to followup with PMD. Return to ED if symptoms recur or worsen my chest wall pain shortness Last Vital Signs Date Time Temp Pulse Resp B/P (MAP) Pulse Ox O2 Delivery O2 Flow Rate FiO2 03/07/19 16:43 98.2 80 16 150/83 96 Room Air Status: improved Disposition: HOME, SELF-CARE Condition: Stable Scripts Lidocaine (LMX 5) 15 Gm Cream..g. 15 GM TP BID, #15 GM Prov: Mayo Tracy MD 03/07/19 Referrals: [facility],REFERRING (PCP) Patient Instructions: Postherpetic Neuralgia Mayo Tracy MD March 07, 2019 18:31
== END 2019-03-07 16:43 | disposition home or self-care (01) ==
LOC: EMR 16:32
DX: B02.29 Other postherpetic nervous system involvement (principal); M54.9 Dorsalgia, unspecified; G89.29 Other chronic pain; Z88.1 Allergy status to other antibiotic agents; Z91.013 Allergy to seafood
CPT/HCPCS: 99282